=== PATIENT | male | born 1955 | race African-American/Black ===

== ENCOUNTER 2022-09-29 17:56 | Emergency (ER) | payer OTHER ==
[~2022-09-29] VITALS: Ht 177.8 cm; Wt 91.0 kg
[2022-09-29 19:46] LABS: BASOPHILS % 0.2 % (0.0-2.0); EOSINOPHILS % 2.1 % (0.0-5.0); HEMATOCRIT. 34.1 % (42.0-52.0); HEMOGLOBIN. 11.2 g/dL (14.0-18.0); LYMPHOCYTES % 18.9 % (20.0-50.0); MEAN CORPUSCULAR HEMOGLOBIN 33.2 pg (28.0-32.0); MEAN CORPUSCULAR VOLUME 101.1 fL (80.0-94.0); MEAN PLATELET VOLUME 7.4 fl (7.4-10.4); NEUTROPHILS % 70.8 % (40.0-76.0); PLATELET 370 x1000/uL (130-400); RED BLOOD CELL COUNT 3.38 mill/uL (4.7-6.1); RED CELL DISTRIBUTION WIDTH 14.1 % (11.6-14.6)
[2022-09-29 19:54] LABS: CHLORIDE 110 mEq/L (98-107)
[2022-09-29] MEDS ORDERED: PERM60CR4 TP (21:34)
[2022-09-29] MEDS ORDERED: SULF1TAB48 MT (21:34)
[2022-09-29] MEDS ORDERED: KETOROLAC 30MG/ML VIAL IM ONE (22:15)
[2022-09-29 22:28] VITALS: BP 109/44
== END 2022-09-29 22:39 | disposition home or self-care (01) ==
LOC: ER 17:56
DX: L73.2 Hidradenitis suppurativa (principal); B86 Scabies; J45.909 Unspecified asthma, uncomplicated
CPT/HCPCS: 36415; 71045; 80053; 85025; 99284; J1885; Z7610